=== PATIENT | male | born 1965 | race American Indian/Alaskan Native ===

== ENCOUNTER 2016-09-06 13:41 | Emergency (ER) | payer MEDICAID, OTHER ==
[2016-09-06 16:57] VITALS: BP 138/92
--- NOTE | 2016-09-06 20:07 | Emergency Department Report ---
ED Allergic Reaction HPI - General Chief complaint: Extremity Injury, Upper Stated complaint: SWELLING OF HANDS/MOUTH Time Seen by Provider: 09/06/16 19:46 Source: patient, family Mode of arrival: Ambulatory Limitations: No Limitations - History of Present Illness Initial Comments: Patient here reports that she is swelling to his lips and right hand times one day. He said it happened after he had food to include shrimp and multiple other 40 he has. Denies any associated fever, swelling of neck or difficulty breathing, wheezing or coughing. Denies any shortness of breath or chest pain. Pain to right hand as tolerated 10. He did not take any [id number] medication. Denies any radiation of pain. MD Complaint: allergic reaction Onset/Timin -: days(s) Exposure: food Symptoms: itching, lip swelling. denies: rash, facial swelling, hoarseness, syncopy, dizziness, nausea, vomiting, other, abdominal pain Severity: mild Treatment Prior to Arrival: none Previous Allergy History: none - Related Data Previous Rx's Medication Instructions Recorded Last Taken Type Cetirizine HCl [ZyrTEC] 10 mg PO QDAY #14 capsule 09/06/16 Unknown Rx Famotidine [Pepcid] 40 mg PO QDAY #5 tablet 09/06/16 Unknown Rx methylPREDNISolone [Medrol] 4 mg PO QAM #1 tab.ds.pk 09/06/16 Unknown Rx Allergies Allergy/AdvReac Type Severity Reaction Status Date / Time No Known Allergies Allergy Unverified 09/06/16 16:53 ED Review of Systems ROS: Stated complaint: SWELLING OF HANDS/MOUTH Other details as noted in HPI Comment: All other systems reviewed and negative Constitutional: denies: chills, fever Eyes: denies: vision change ENT: denies: ear pain, throat pain, congestion Respiratory: no symptoms reported Cardiovascular: denies: chest pain, palpitations, edema, syncope Gastrointestinal: denies: nausea, vomiting, diarrhea, constipation Musculoskeletal: arthralgia, other (swelling of hand and lips). denies: back pain Skin: pruritus. denies: rash Neurological: denies: headache, weakness, numbness, paresthesias, confusion, abnormal gait, vertigo ED Past Medical Hx - Past Medical History Previous Medical History?: No - Surgical History Past Surgical History?: No - Family History Family history: hypertension - Social History Smoking Status: Never Smoker Substance Use Type: None - Medications Home Medications: Home Medications Medication Instructions Recorded Confirmed Last Taken Type Cetirizine HCl [ZyrTEC] 10 mg PO QDAY #14 capsule 09/06/16 Unknown Rx Famotidine [Pepcid] 40 mg PO QDAY #5 tablet 09/06/16 Unknown Rx methylPREDNISolone [Medrol] 4 mg PO QAM #1 tab.ds.pk 09/06/16 Unknown Rx ED Physical Exam - General Limitations: No Limitations General appearance: alert, in no apparent distress - Head Head exam: Present: atraumatic, normocephalic, normal inspection - Eye Eye exam: Present: normal appearance, PERRL, EOMI. Absent: conjunctival injection, periorbital swelling, periorbital tenderness Pupils: Present: normal accommodation - ENT ENT exam: Present: normal orophraynx, mucous membranes moist, TM's normal bilaterally, normal external ear exam - Expanded ENT Exam Expanded Ear exam: Present: normal external inspection Mouth exam: Present: other (mild swelling to upper and lower lip. Nontender to palpate.). Absent: muffled voice, tongue elevation, laceration Teeth exam: Present: normal inspection Throat exam: Positive: normal inspection. Negative: tonsillar erythema, tonsillomegaly, tonsillar exudate, R peritonsillar mass, L peritonsillar mass - Neck Neck exam: Present: normal inspection, tenderness, full ROM. Absent: lymphadenopathy - Expanded Neck Exam Expanded Neck exam: Absent: tenderness, midline deformity, anterior neck swelling, tracheal deviation - Respiratory Respiratory exam: Present: normal lung sounds bilaterally. Absent: respiratory distress, wheezes, rales, rhonchi, stridor, chest wall tenderness - Cardiovascular Cardiovascular Exam: Present: regular rate, normal rhythm, normal heart sounds - GI/Abdominal GI/Abdominal exam: Present: soft, normal bowel sounds. Absent: distended, tenderness, guarding, rebound, rigid - Extremities Exam Extremities exam: Present: normal inspection, full ROM, normal capillary refill , other (minimal swelling noted to dorsal aspect of right hand. Cap Refill is less than 3 seconds. Full range of motion bilateral hand sales professional equal and strong. No deformity noted. No signs of compartment syndrome or neurovascular compromise. Pulses are bounding at 2+.). Absent: tenderness, pedal edema, joint swelling, calf tenderness - Back Exam Back exam: Present: normal inspection, full ROM. Absent: tenderness, CVA tenderness (R), CVA tenderness (L), muscle spasm, paraspinal tenderness, vertebral tenderness, rash noted - Neurological Exam Neurological exam: Present: alert, oriented X3, normal gait, reflexes normal. Absent: motor sensory deficit - Psychiatric Psychiatric exam: Present: normal affect, normal mood - Skin Skin exam: Present: warm, dry, intact, normal color. Absent: rash, erythema ED Course Vital Signs 09/06/16 16:53 Temperature 98.4 F Pulse Rate 91 H Respiratory 16 Rate Blood Pressure 138/92 O2 Sat by Pulse 100 Oximetry - Reevaluation(s) Reevaluation #1: 09/06/16 20:50 Patient stable, status post treatment for allergies. Swelling to lips and hand resolving. 09/06/16 20:57 ED Medical Decision Making - Medical Decision Making ED course: Patient with diagnosis of minor allergic reaction. He was given Pepcid 40 mg by mouth, Decadron 10 mg IM and Benadryl 50 mg IM for increasing swelling to lip and hand. Patient discharged home with prescription for Zyrtec and Medrol Dosepak and to follow-up if he has increased swelling in, difficulty breathing, shortness of breath he isn't coughing. Critical care attestation.: If time is entered above; I have spent that time in minutes in the direct care of this critically ill patient, excluding procedure time. ED Disposition Clinical Impression: Arthralgia of right hand, Swelling of right hand Minor allergic reaction Qualifiers: Encounter type: initial encounter Qualified Code(s): T78.40XA - Allergy, unspecified, initial encounter Disposition: DISCHARGED TO HOME OR SELFCARE Is pt being admited?: No Does the pt Need Aspirin: No Condition: Stable Instructions: Food Allergy (ED), Arthralgia (ED) Additional Instructions: Please take medication as prescribed. If You developed increased swelling to lip, tongue, difficulty swallowing, breathing, chest pain or shortness of breath please return to emergency room. Prescriptions: Cetirizine HCl [ZyrTEC] 10 mg PO QDAY #14 capsule Famotidine [Pepcid] 40 mg PO QDAY #5 tablet methylPREDNISolone [Medrol] 4 mg PO QAM #1 tab.ds.pk Referrals: YURI MANCINI MD [Primary Care Provider] - 09/07/16 Forms: Work/School Release Form(ED)
[2016-09-06] MEDS ORDERED: DECADRON IM ONE (20:14)
[2016-09-06] MEDS ORDERED: PEPCID PO ONE (20:14)
[2016-09-06] MEDS ORDERED: BENADRYL IM ONE (20:14)
== END 2016-09-06 20:46 | disposition home or self-care (01) ==
LOC: ED 13:41
DX: M79.641 Pain in right hand (principal); M79.89 Other specified soft tissue disorders; T78.1XXA Other adverse food reactions, not elsewhere classified, initial encounter; X58.XXXA Exposure to other specified factors, initial encounter
CPT/HCPCS: 96372; 99282; J1100; J1200

== ENCOUNTER 2020-06-23 15:26 | Emergency (ER) | payer OTHER ==
[2020-06-23 17:13] VITALS: BP 144/96
== END 2020-06-23 17:45 | disposition left against medical advice (07) ==
LOC: ED 15:26
DX: R19.7 Diarrhea, unspecified (principal); R42 Dizziness and giddiness; R05 Cough; Z20.828 Contact with and (suspected) exposure to other viral communicable diseases; Z53.21 Procedure and treatment not carried out due to patient leaving prior to being seen by health care provider